=== PATIENT | male | born 1980 | race Caucasian/White ===

== ENCOUNTER 2017-02-25 07:46 | Emergency (ER) | payer OTHER ==
[~2017-02-25] VITALS: Ht 175.3 cm; Wt 108.1 kg
[~2017-02-25 07:46] MED LIST: BACTRIM,SEPT1 TABLET PO; MOTRIN IB200 MG PO; NOHOMEMEDS; PREDNISONE10 MG PO
[2017-02-25 08:49] LABS: INFLUENZA A VIRAL ANTIGEN NEGATIVE; INFLUENZA B VIRAL ANTIGEN NEGATIVE
[2017-02-25] MEDS ORDERED: ZITHROMAX Z-PA250 MG PO (09:21)
[2017-02-25 09:50] VITALS: BP 115/74
== END 2017-02-25 09:51 | disposition home or self-care (01) ==
LOC: EME 07:46
DX: J02.9 Acute pharyngitis, unspecified (principal)
CPT/HCPCS: 87502; 87651 90; 99281; 99284

== ENCOUNTER 2017-07-05 08:41 | Emergency (ER) | payer OTHER ==
[~2017-07-05] VITALS: Ht 175.3 cm; Wt 102.8 kg
[~2017-07-05 08:41] MED LIST changes: +ZITHROMAX Z-PA250 MG PO
[2017-07-05] MEDS ORDERED: MOTRIN800 MG PO (10:01)
[2017-07-05] MEDS ORDERED: FLEXERIL10 MG PO (10:01)
[2017-07-05] MEDS ORDERED: LIDODERM 5% P1 PATCH TD (10:01)
[2017-07-05 10:19] VITALS: BP 128/89
== END 2017-07-05 10:31 | disposition home or self-care (01) ==
LOC: EME 08:41
DX: S39.012A Strain of muscle, fascia and tendon of lower back, initial encounter (principal); X50.0XXA Overexertion from strenuous movement or load, initial encounter; M54.42 Lumbago with sciatica, left side; F17.200 Nicotine dependence, unspecified, uncomplicated
CPT/HCPCS: 72100; 99281; 99284; J1885

== ENCOUNTER 2017-07-15 13:47 | Emergency (ER) | payer OTHER ==
[~2017-07-15] VITALS: Ht 175.3 cm; Wt 98.4 kg
[~2017-07-15 13:47] MED LIST changes: +FLEXERIL10 MG PO; +LIDODERM 5% P1 PATCH TD; +MOTRIN800 MG PO
[2017-07-15 16:33] LABS: HEMATOCRIT 38.6 % (38.0-50.0); MCHC 32.9 G/DL (30.0-36.0); MEAN PLAT.VOLUME 8.8 uM^3 (9.0-12.4); PLATELET COUNT 323 K/uL (156-360); RBC DIS.WIDTH-CV 12.4 % (11.8-14.6); RBC DIS.WIDTH-SD 38.5 % (39-53); RED BLOOD COUNT 4.54 M/uL (4.00-5.50); WHITE BLOOD COUNT 13.1 K/uL (4.1-10.2)
[2017-07-15 16:40] LABS: ADD MIUA? YES; BILIRUBIN NEGATIVE; BLOOD MODERATE; COLOR YELLOW ((YELLOW)); GLUCOSE (STRIP) NEGATIVE; KETONES NEGATIVE; LEUKOCYTES NEGATIVE; NITRITE NEGATIVE; PROTEIN (STRIP) NEGATIVE; UROBILINOGEN 0.2 MG/DL (0.2-1.0)
[2017-07-15 16:44] LABS: CHLORIDE 103 mEq/L (99-109); POTASSIUM 3.8 mEq/L (3.7-5.4); SODIUM 137 mEq/L (136-147)
[2017-07-15 16:45] LABS: GLUCOSE 140 mg/dL (70-99)
[2017-07-15 16:47] LABS: ANION GAP 11 MEQ/L (2-14)
[2017-07-15 16:49] LABS: GFR ESTIMATE (CALCULATED) > 59 mL/min/
[2017-07-15 16:50] LABS: UREA NITROGEN (BUN) 13 mg/dL (9-23)
[2017-07-15 16:52] LABS: BACTERIA NONE SEEN /HPF; EPITHELIAL CELLS NONE SEEN /HPF; MUCUS TRACE /LPF; UCUL ADDED? NO; WHITE BLOOD CELLS 0-5 /HPF (0-5)
[2017-07-15] MEDS ORDERED: FLOMAX0.4 MG PO (18:32)
[2017-07-15] MEDS ORDERED: CIPRO500 MG PO (18:32)
[2017-07-15] MEDS ORDERED: NORCO 5/3251 TABLET PO (18:32)
[2017-07-15] MEDS ORDERED: ZOFRAN4 MG PO (18:32)
[2017-07-15 18:38] VITALS: BP 120/63
== END 2017-07-15 18:39 | disposition home or self-care (01) ==
LOC: EME 13:47
PROVIDERS: Physician Assistant
DX: N13.30 Unspecified hydronephrosis (principal); N20.1 Calculus of ureter; F17.200 Nicotine dependence, unspecified, uncomplicated
CPT/HCPCS: 74176; 80048; 81003; 85027; 99281; 99284; J1885

== ENCOUNTER 2018-03-07 07:48 | Emergency (ER) | payer OTHER ==
[~2018-03-07] VITALS: Ht 175.3 cm; Wt 85.0 kg
[~2018-03-07 07:48] MED LIST changes: +CIPRO500 MG PO; +FLOMAX0.4 MG PO; +NORCO 5/3251 TABLET PO; +ZOFRAN4 MG PO
[2018-03-07] MEDS ORDERED: BENADRYL25 MG PO (09:28)
[2018-03-07] MEDS ORDERED: REGLAN10 MG PO (09:28)
[2018-03-07] MEDS ORDERED: NAPROSYN500 MG PO (09:28)
[2018-03-07 09:38] VITALS: BP 132/80
== END 2018-03-07 09:39 | disposition home or self-care (01) ==
LOC: EME 07:48
DX: G43.909 Migraine, unspecified, not intractable, without status migrainosus (principal); R11.2 Nausea with vomiting, unspecified; F17.200 Nicotine dependence, unspecified, uncomplicated
CPT/HCPCS: J1885

== ENCOUNTER 2018-06-26 07:03 | Emergency (ER) | payer SELFPAY ==
[~2018-06-26] VITALS: Ht 175.3 cm; Wt 91.8 kg
[~2018-06-26 07:03] MED LIST changes: +BENADRYL25 MG PO; +NAPROSYN500 MG PO; +REGLAN10 MG PO
[2018-06-26] MEDS ORDERED: KEFLEX500 MG PO (07:19)
[2018-06-26 07:35] VITALS: BP 129/87
== END 2018-06-26 07:37 | disposition home or self-care (01) ==
LOC: EME 07:03
DX: L03.113 Cellulitis of right upper limb (principal); F17.200 Nicotine dependence, unspecified, uncomplicated
CPT/HCPCS: 99281; 99283